=== PATIENT | male | born 1995 | race Caucasian/White ===

== ENCOUNTER → 2019-01-14 | Emergency (ER) | payer SELFPAY ==
[~2019-01-14] VITALS: Ht 188 cm; Wt 88.0 kg
[~2019-01-14] MED LIST: NAPR-985 PO
[2019-01-14 12:31] VITALS: BP 137/89; PULSE 75; RESP 18; Ht 188 cm; Wt 88.0 kg
--- NOTE | 2019-01-14 13:44 | ERD ---
ER Documentation Chief Complaint Chief Complaint FELL WEEKS AGO, HIT CHEST, TODAY CP AFER AN ARGUMENT WITH GIRLFRIEND HPI 23-year-old male presents ED complaining of chest wall pain x2 weeks. He states that he was at work and his legs felt weird in his work called the maneuver to come to the emergency department. He denies any falls or injuries. He reports that 2 weeks ago was playing basketball and fell and landed on his chest. He can point to a specific location is anterior chest where the pain is located. In addition he reports past medical history of anxiety and states that he feels anxious today. Patient denies any past medical history. He denies wanting any medication in the ED and just asked for a bag of ice. ROS All systems reviewed and are negative except as per history of present illness. Medications Home Meds Active Scripts Naproxen* (Naprosyn*) 500 Mg Tablet, 500 MG PO BID PRN for PAIN AND/OR INFLAMMATION, #30 TAB Prov:BERNARD FAN PA-C 01/14/19 PMhx/Soc Medical and Surgical Hx: pt denies Medical Hx History of Surgery: Yes (tonsillectomy) Hx Alcohol Use: Yes (rarely) Hx Substance Use: Yes (marijuana) Hx Tobacco Use: Yes Smoking Status: Current some day smoker FmHx Family History: No diabetes Physical Exam Vitals Vital Signs Date Temp Pulse Resp B/P (MAP) Pulse Ox O2 O2 Flow FiO2 Time Delivery Rate 01/14/19 98.1 75 18 137/89 99 12:31 (105) Physical Exam Const: No acute distress Head: Atraumatic Eyes: Normal Conjunctiva ENT: Normal External Ears, Nose and Mouth. Neck: Full range of motion. Resp: Clear to auscultation bilaterally Cardio: Regular rate and rhythm, no murmurs Chest: Reproducible tenderness to the anterior chest wall Abd: Soft, non tender, non distended. Back: No midline tenderness Ext: No cyanosis, or edema Neur: Awake and alert Psych: Normal Mood and Affect Procedures/MDM ED COURSE: The patient was stable throughout ED course. I kept the patient informed of laboratory and diagnostic imaging results throughout the ED course. EKG: Read by Dr. Falk, attending physician. EKG shows normal sinus rhythm at a rate of 71 bpm No arrhythmias, acute ST elevations or T wave changes were noted. DIAGNOSTIC IMAGING: Read by radiologist. PROCEDURE: XR Chest. CLINICAL INDICATION: CWP TECHNIQUE: PA and Lateral views of the chest were obtained. COMPARISON: None. FINDINGS: The cardiomediastinal silhouette is within normal limits. The lungs are clear. No signs of pleural fluid or pneumothorax are seen. The osseous structures and soft tissues are unremarkable. IMPRESSION: No evidence for active cardiopulmonary disease. Jasper Bliss Physician Date Time Electronically viewed and signed by Jasper Bliss Physician on 01/14/2019 13:27 MEDICATIONS GIVEN: Ice pack, Pt deferred all other medication options Patient tolerated medication well with no adverse reactions. Patient reported improvement in pain. MEDICAL DECISION MAKING: Patient is a 23-year-old male complaining of anxiety and chest wall pain x2 weeks. I have low suspicion for acute coronary syndrome, AAA, esophageal rupture, pneumonia, respiratory distress. Patient was on the phone with his girlfriend in which he stated that he was fighting with her and asked her to co me see him in the hospital if she cared about him. In addition physical exam was unremarkable. There is reproducible chest wall pain on the anterior chest. No radiation of the pain is present. Patient denied any medications given in the emergency department. He only excepted about the device. Patient reported a history of anxiety and stated that he felt anxious today. But however after giving the patient his EKG and x-ray results which were unremarkable his friends were present and he stated that he is never had any issues with anxiety before he does not feel anxious. Patient did that he was very to go. Patient was discharged with a prescription for naproxen. All questions were answered. He was given strict return ED precautions if symptoms persist or worsen. He refused any other medications. Vital signs were reviewed. Patient is afebrile. Patient was not hypoxic. Patient was hemodynamically stable. Patient was told to follow up with primary care for further care and management. PRESCRIPTION: Naproxen DISCHARGE: At this time, patient is stable for discharge and outpatient management. I have instructed the patient to follow-up with their primary care physician in 1-2 days. I have discussed with the patient the possibility of needing to see a spe cialist for further workup and imaging studies if symptoms persist. I have instructed the patient to promptly return to the ER for any new or worsening symptoms including increased pain, fever, nausea, vomiting, weakness or LOC. The patient expressed understanding of and agreement with this plan. All questions were answered. Home care instructions were provided. Disclaimer: Inadvertent spelling and grammatical errors are likely due to EHR/dictation software use and do not reflect on the overall quality of patient care. Also, please note that the electronic time recorded on this note does not necessarily reflect the actual time of the patient encounter. Departure Diagnosis: Primary Impression: Chest wall injury Encounter type: initial encounter Qualified Codes: S29.9XXA - Unspecified injury of thorax, initial encounter Condition: Fair Patient Instructions: Chest Wall Contusion Additional Instructions: Call your primary care doctor TOMORROW for an appointment during the next 1-2 days.See the doctor sooner or return here if your condition worsens before your appointment time. BERNARD FAN PA-C Jan 14, 2019 13:44
== END | disposition home or self-care (01) ==
LOC: FTE 12:23
DX: S29.9XXA Unspecified injury of thorax, initial encounter (principal); F17.210 Nicotine dependence, cigarettes, uncomplicated; R07.89 Other chest pain; W18.39XA Other fall on same level, initial encounter; Y92.310 Basketball court as the place of occurrence of the external cause
CPT/HCPCS: 71046; 93005